=== PATIENT | female | born 1965 | race Caucasian/White ===

== ENCOUNTER → 2019-09-09 | Outpatient (CLI) | payer OTHER, BC ==
--- NOTE | 2019-09-09 16:41 | RAD ---
CHEST PA LATERAL History: Myalgia. Smoker. Comparison: December 09, 2010 Findings: No consolidation or pleural effusion. Normal heart size. No pneumothorax. Impression: 1. No acute cardiopulmonary process. Electronically signed by: Ernesto Gerard DO (09/09/2019 4:38 PM) [id number]
== END | disposition home or self-care (01) ==
LOC: DXRAD 10:09
PROVIDERS: ATTEND Physician Assistant
DX: M79.10 Myalgia, unspecified site (principal); F17.210 Nicotine dependence, cigarettes, uncomplicated
CPT/HCPCS: 71046

== ENCOUNTER → 2020-12-15 | Outpatient (CLI) | payer OTHER ==
--- NOTE | 2020-12-15 16:02 | RAD ---
Examination: Right Lower Extremity Venous Doppler Ultrasound History: Right knee pain Comparison: None Procedure: Kc scale, color flow 2D and spectal waveform analysis images are obtained with and witho ut compression in the area of the common femoral vein, superficial femoral vein - femoral vein juncti on, main femoral vein (superficial femoral vein) and popliteal vein. Veins of the proximal calf are a lso imaged. Findings: There is normal duplex flow, color flow and compressibility of all visualized vein segments. No evide nce of deep venous thrombus is present. Impression: No evidence of DVT in the right lower extremity venous system. Electronically signed by: Gregorio Smith MD (12/15/2020 4:00 PM) [id number]
--- NOTE | 2020-12-15 17:27 | RAD ---
Site ID: [id number] EXAMINATION: XR KNEE 3 VIEWS_RT. HISTORY: 55 years Female Reason: RT KNEE PAIN / Spl. Instructions: / History: . COMPARISON: None. FINDINGS: No fracture, dislocation or radiopaque foreign body. Minimal marginal osteophyte is seen at the pa tella with no joint space narrowing or other arthritic changes seen. IMPRESSION: No acute process. Electronically signed by: Patrick Denney MD (12/15/2020 5:24 PM) [id number]
== END ==
LOC: US 15:05
PROVIDERS: ATTEND Specialist
DX: M25.561 Pain in right knee (principal); M79.604 Pain in right leg
CPT/HCPCS: 73562; 93971